=== PATIENT | female | born 1960 | race Caucasian/White ===

== ENCOUNTER 2020-01-11 23:19 | Emergency (ER) | payer OTHER, SELFPAY ==
--- NOTE | ~2020-01-11 | CT_ITS ---
EXAMINATION: CT brain wo con DATE: 01/11/2020 23:58 INDICATION: Headache since this morning. TECHNIQUE: Computed tomography (CT) of the head was performed without intravenous contrast. The mA wa s adjusted according to patient size. Iterative reconstruction technique was employed. Exam dose: 68 1.00 mGy-cm total exam DLP. COMPARISON: None FINDINGS: No intracranial mass lesion or hemorrhage or cerebrovascular accident is evident. There is no midline shift or mass effect. Normal ventricular size. Normal villa-white matter differentiation. N o subdural or epidural hematoma. There are bilateral carotid siphon internal carotid artery calcifica tions as well as left vertebral artery calcification. No orbital mass lesion. Included paranasal sinuses and the mastoid air cells are normally developed and aerated. No fracture or bone destruction of the cranial vault. IMPRESSION: Cerebral atherosclerosis No acute finding Reviewed, dictated and finalized at [facility]. Reviewed, dictated and finalized at location [facility]. NESS SPECIALIST
--- NOTE | ~2020-01-11 | XR_ITS ---
EXAMINATION: XR chest 2V DATE: 01/11/2020 23:59 INDICATION: Chest pain TECHNIQUE: PA and lateral views of the chest are obtained. COMPARISON: 08/05/2007 FINDINGS: The lungs are free of acute opacities. There is no pleural effusion or pneumothorax. The ca rdiomediastinal silhouette is normal. There is mild thoracic spondylosis. IMPRESSION: 1. No acute cardiopulmonary abnormality. Reviewed, dictated and finalized at location [facility]. 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
--- NOTE | 2020-01-11 23:21 | ECG_ITS ---
Measurements Intervals [place] Rate: 73 P: 48 DC: 150 QRS: 39 QRSD: 89 T: 37 QT: 375 QTc: 413 Interpretive Statements SINUS RHYTHM NORMAL ECG Electronically Signed On 01-12-2020 17:23:31 CINDER WORKER by Broderick Schwab D.O.
[2020-01-11 23:25] VITALS: BP 179/101; PULSE 78; RESP 20; TEMP 36.6; O2SAT 98
[2020-01-11 23:30] VITALS: PULSE 73
--- NOTE | 2020-01-11 23:30 | ED.CHESTPAIN ---
HPI - Chest Pain General Chief Complaint: Chest Pain Stated Complaint: Chest pain Time Seen by Provider: 01/11/20 23:30 Source: patient Mode of arrival: ambulatory Limitations: no limitations History of Present Illness HPI narrative: 60-year-old woman with a history of WPW status post ablation brought in today by her sister for chest pain and headache which has been present since yesterday. Chest pain has been intermittent, left-sided and radiates to her back. She states that there are no alleviating or exacerbating activities. She denies previous similar episodes. Patient states that she has had a diffuse headache that is like hammering her head and 12/07. She denies shortness of breath, fever, chest pain, nausea, vomiting, visual changes, cough, sore throat and cold symptoms. MD complaint: chest pain Related Data Home Medications Medication Instructions Recorded Confirmed meclizine [Antivert] 25 mg PO BID PRN 01/11/20 01/11/20 Allergies Allergy/AdvReac Type Severity Reaction Status Date / Time No Known Allergies Allergy Verified 01/11/20 23:45 Review of Systems Constitutional: Constitutional: Denies body ache(s) and Denies chills Comments: No fever Eyes: Eyes: Reports blurry vision, Denies change in vision and Denies photophobia ENT: Denies mouth lesions, Denies nasal congestion and Denies sore throat Cardiovascular: Cardiovascular: Reports chest pain, Denies rapid heart rate, Denies leg edema, Denies dyspnea and Denies orthopnea Respiratory: Respiratory: Denies cough, Denies hemoptysis, Denies dyspnea and Denies wheezing Gastrointestinal: Gastrointestinal: Denies abdominal pain, Denies diarrhea, Denies nausea and Denies vomiting Musculoskeletal: Musculoskeletal: Denies arthralgias and Denies joint swelling Integumentary/Breasts: Skin/Breast: Denies change in pigmentation, Denies erythema and Denies rash Neurologic: Denies vertigo, Denies dizziness, Denies syncope, Reports headache(s), Denies focal weakness, Denies loss of vision and Denies weakness Hematologic/Lymphatic: Hematologic/Lymphatic: Denies easy bleeding and Denies easy bruising Allergic/Immunologic: Allergic/Immunologic: Denies urticaria, Denies lip swelling and Denies throat swelling PMFSH Past Medical History Medical History Zgztg-Egaiqiwnh-Hqlix syndrome Surgical History Surgical History History of carpal tunnel surgery History of radiofrequency ablation procedure for cardiac arrhythmia History of tubal ligation Ulnar nerve entrapment Social History Social History Smoking status: Current every day smoker Alcohol intake: current Substance use: never Living arrangements: alone Exam Const: General: cooperative, alert, awake, Physically active, acute distress moderate and tired appearing Nutritional Appearance: overweight Orientation/consciousness: patient oriented x3 Limitations: no limitations HENMT: Head: normal to inspection, normocephalic and atraumatic Ears: TM's normal bilaterally and EAC's normal General nose exam: Normal external nose present Mouth: Yes Normal oral and palatal mucosa present Throat: posterior oropharynx normal Eyes: Conjunctivae: conjunctivae normal Sclera: sclerae normal Pupils: Equal, round and reactive pupils present EOM: EOMs intact bilaterally Neck: Neck: normal visual inspection and full ROM Resp: Effort & Inspection: normal respiratory effort and not labored Auscultation: clear to auscultation bilaterally, no rales, no rhonchi, no wheezes and diminished lung sounds diffuse Cardio: Rate: regular rate Rhythm: regular rhythm Heart sounds: no murmurs Peripheral pulses: Peripheral pulses 2+ throughout GI: GI Palp: No abdominal tenderness and Yes Soft to palpation Auscultation: normal bowel sounds Skin: General skin
[2020-01-12 00:03] LABS: Basophils Absolute Auto 0.06 K/mm3 (0.00-0.10); Basophils Percent Auto 0.7 % (0.0-1.0); Eosinophils Absolute Auto 0.13 K/mm3 (0.02-0.50); Eosinophils Percent Auto 1.6 % (1.0-6.0); Hematocrit 47.7 % (35.0-49.0); Hemoglobin 15.8 g/dL (12.0-15.0); Immature Granulocyte Absolute 0.02 K/mm3 (0.00-0.00); Immature Granulocyte Percent A 0.2 % (0.0-0.0); Lymphocytes Absolute Auto 2.81 K/mm3 (1.10-4.50); Lymphocytes Percent Auto 33.6 % (18.0-42.0); Mean Corpuscular HGB Conc 33.1 g/dL (32.0-36.0); Mean Corpuscular Hemoglobin 30.2 pg (27.0-31.0); Mean Corpuscular Volume 91.2 fL (78.0-102.0); Mean Platelet Volume 8.8 fl (9.2-11.8); Monocytes Percent Auto 4.8 % (2.0-11.0); Neutrophils Percent Auto 59.1 % (50.0-70.0); Platelet Count Result 210 K/mm3 (150-420); Red Blood Count 5.23 M/mm3 (4.20-5.40); Red Cell Distribution Width 13.7 % (11.6-14.4); White Blood Count 8.4 K/mm3 (4.8-10.8)
[2020-01-12] MEDS: MORPHINE SULFATE (*CRX) 4 MG/ML INJ IV PUSH (00:12)
[2020-01-12] MEDS: ONDANSETRON INJ 4 MG/2 ML VIAL IV PUSH (00:12)
[2020-01-12 00:19] LABS: Partial Thromboplastin Time 27.3 SEC (22.3-31.6); Prothrombin Time 10.8 Seconds (9.64-11.0)
[2020-01-12 00:20] LABS: Alanine Aminotransferase 20 U/L (14-59); Albumin Level 4.1 g/dL (3.4-5.0); Alkaline Phosphatase 80 U/L (46-116); Anion Gap 11 mmol/L (8-16); Aspartate Amino Transferase 12 U/L (15-37); Bilirubin,Total 0.2 mg/dL (0.00-1.00); Blood Urea Nitrogen 16 mg/dL (7-18); Calcium 9.1 mg/dL (8.5-10.1); Carbon Dioxide 24 mmol/L (21-32); Chloride 107 mmol/L (98-108); Estimated CRCL calculation 59 ml/min; Estimated Glomerular Filt Rate 57; Glucose 104 mg/dL (70-99); Lipase 158 U/L (73-393); Osmolality Calculated 295 mOsm/kg (285-295); Potassium 3.8 mmol/L (3.5-5.1); Sodium 142 mmol/L (136-145); Total Protein 6.7 g/dL (6.4-8.2)
[2020-01-12 00:22] LABS: BNP 8.2 pg/mL (0-100); Troponin I < 0.02 ng/mL (0.00-0.056)
[2020-01-12 00:32] VITALS: BP 149/81; PULSE 68; RESP 20; O2SAT 97
[2020-01-12 00:50] LABS: Appearance Urine Clear (Clear); Bilirubin Urine Negative (Negative); Color Urine Yellow (Yellow); Glucose Urine UA Negative (Negative); Ketones Urine Negative (Negative); Leukocyte Esterase Ur 1+ LEU/UL (Negative); Nitrate Urine Negative (Negative); Protein Urine Negative (Negative); Specific Grav Ur 1.015 (1.010-1.020); Urobilinogen Urine 0.2 mg/dL (0.2-1.0)
[2020-01-12 00:56] LABS: Add Urine Microscopic? YES; Bacteria Urine None seen /hpf; Blood Urine Trace-Intact (Negative); RBC Urine 0-2 /hpf (0-2); Squamous Epithelial Cell Urine None seen /hpf (Few)
[2020-01-12] MEDS: PROCHLORPERAZINE EDISYLATE 10 MG/2 ML VIAL IV PUSH (01:00)
[2020-01-12 01:36] VITALS: BP 149/86; PULSE 73; RESP 20; TEMP 36.6; O2SAT 98
== END 2020-01-12 01:44 | disposition home or self-care (01) ==
PROVIDERS: Emergency Provider Emergency Medicine
DX: R51.9 Headache, unspecified (principal); R07.89 Other chest pain
CPT/HCPCS: 36415; 70450; 71046; 80053; 81001; 83690; 83880; 84484; 85025; 85380; 85610; 85730; 87086; 93005; 96374; 96375; 99284; J0780; J2270; J2405

== ENCOUNTER 2021-08-31 22:45 | Emergency (ER) | payer OTHER, SELFPAY ==
--- NOTE | ~2021-08-31 | XR_ITS ---
EXAMINATION: XR chest 1V portable DATE: 08/31/2021 23:38 INDICATION: Shortness of breath. 3 days of body discomfort. COVID exposure. TECHNIQUE: frontal view of the chest was obtained. COMPARISON: Chest radiograph dated 01/11/2020 FINDINGS: Mild bibasilar opacities. No pleural effusion or pneumothorax. The cardiomediastinal silhouette is no rmal. Visualized bones and soft tissues are unremarkable. IMPRESSION: 1. Mild bibasilar opacities which could represent atelectasis or pneumonia. Reviewed, dictated and finalized at location [facility].
[2021-08-31 23:15] VITALS: BP 166/87; PULSE 101; RESP 18; TEMP 38.4; O2SAT 94
[2021-08-31 23:24] VITALS: O2SAT 94
--- NOTE | 2021-08-31 23:40 | ED.SOB ---
HPI - SOB/Dyspnea General Chief Complaint: Shortness of Breath/Dyspnea Stated Complaint: fever,bad headache,body aches sister has covid Source: patient Mode of arrival: ambulatory Limitations: no limitations History of Present Illness HPI Narrative: this is a 61-year-old female that presents with a shortness breath with some nonproductive cough a fever of 101 is not taking anything at home states that she has had exposure to COVID. There is no chest pain does have O2 sats of 94% on room air appears comfortable with no nausea vomiting no abdominal pain no diarrhea constipation. MD elicited complaint: shortness of breath, cough and pain with inspiration Onset (ago): day(s) Timing: constant Severity: mild Exacerbating factors: nothing Relieving factors: nothing Associated symptoms: denies other symptoms Treatment prior to arrival: none Related Data Home Medications Medication Instructions Recorded Confirmed amitriptyline 25 mg tablet 1 tablet PO DAILY 08/31/21 08/31/21 aspirin 81 mg chewable tablet 1 tablet PO DAILY 08/31/21 08/31/21 atorvastatin 40 mg tablet 1 tablet PO DAILY 08/31/21 08/31/21 lisinopril 30 mg tablet 1 tablet PO DAILY 08/31/21 08/31/21 lorazepam 1 mg tablet 1 tablet PO DAILY PRN Anxiety 08/31/21 08/31/21 Allergies Allergy/AdvReac Type Severity Reaction Status Date / Time No Known Allergies Allergy Verified 08/31/21 23:10 Review of Systems Review of Systems: All systems reviewed & are unremarkable except as noted in HPI and below PMFSH Past Medical History Medical History Atwnv-Ztwifmlmk-Qdzwl syndrome Surgical History Surgical History History of carpal tunnel surgery History of radiofrequency ablation procedure for cardiac arrhythmia History of tubal ligation Ulnar nerve entrapment Social History Social History Smoking status: Current every day smoker Alcohol intake: current Substance use: never Exam Const: General: healthy appearing and no acute distress HENMT: Head: normal to inspection General nose exam: Normal external nose present Face and sinus: normal facial exam Eyes: Conjunctivae: conjunctivae normal Pupils: Equal, round and reactive pupils present EOM: EOMs intact bilaterally Neck: Neck: normal visual inspection and no meningeal signs Chest: Chest palpation & inspection: normal inspection of the chest Resp: Effort & Inspection: normal respiratory effort Auscultation: clear to auscultation bilaterally Cardio: Rate: regular rate Rhythm: regular rhythm GI: GI Palp: Yes Soft to palpation Auscultation: normal bowel sounds Skin: General skin exam: normal color Rashes: no rashes Wounds: no wounds Neuro: General: patient oriented x3 Extrem: General: normal to inspection Psych: Mental Status: mental status grossly normal Affect: normal affect Course Course Emergency Course: X-ray reviewed and reviewed with patient blood work reviewed as well. Vital Signs Vital signs: Vital Signs Temperature 38.4 C H 08/31/21 23:15 Pulse Rate 101 H 08/31/21 23:15 Respiratory Rate 18 08/31/21 23:15 Blood Pressure 166/87 H 08/31/21 23:15 Pulse Oximetry 94 08/31/21 23:15 Oxygen Delivery Room Air 08/31/21 23:15 Temperature 38.4 C H 08/31/21 23:15 Pulse Rate 101 H 08/31/21 23:15 Respiratory Rate 18 08/31/21 23:15 Blood Pressure 166/87 H 08/31/21 23:15 Pulse Oximetry 94 08/31/21 23:24 Oxygen Delivery Room Air 08/31/21 23:24 Critical Care Time Critical Care Time Critical Care Time: No Discharge Plan Discharge Clinical Impression: COVID-19 Patient Disposition: Home, Self-Care Condition: Stable Instructions: Antibiotic Form, COVID-19 (Coronavirus Disease 2019) (ED) Additional Instructions: take medicine as prescribed and follow-up primary car
[2021-08-31 23:43] LABS: Basophils Absolute Auto 0.04 K/mm3 (0.00-0.10); Basophils Percent Auto 0.5 % (0.0-1.0); Eosinophils Absolute Auto 0.04 K/mm3 (0.02-0.50); Eosinophils Percent Auto 0.5 % (1.0-6.0); Hematocrit 46.5 % (35.0-49.0); Hemoglobin 15.3 g/dL (12.0-15.0); Immature Granulocyte Absolute 0.03 K/mm3 (0.00-0.00); Immature Granulocyte Percent A 0.4 % (0.0-0.0); Lymphocytes Absolute Auto 0.77 K/mm3 (1.10-4.50); Lymphocytes Percent Auto 10.3 % (18.0-42.0); Mean Corpuscular HGB Conc 32.9 g/dL (32.0-36.0); Mean Corpuscular Hemoglobin 30.1 pg (27.0-31.0); Mean Corpuscular Volume 91.4 fL (78.0-102.0); Mean Platelet Volume 8.7 fl (9.2-11.8); Monocytes Absolute Auto 0.45 K/mm3 (0.10-0.90); Neutrophils Absolute Auto 6.1 K/mm3 (1.7-7.2); Neutrophils Percent Auto 82.3 % (50.0-70.0); Platelet Count Result 160 K/mm3 (150-420); Red Blood Count 5.09 M/mm3 (4.20-5.40); Red Cell Distribution Width 13.2 % (11.6-14.4); White Blood Count 7.5 K/mm3 (4.8-10.8)
[2021-08-31 23:58] LABS: Alanine Aminotransferase 23 U/L (14-59); Alkaline Phosphatase 94 U/L (46-116); Anion Gap 12 mmol/L (8-16); Aspartate Amino Transferase 10 U/L (15-37); Bilirubin,Total 0.3 mg/dL (0.00-1.00); Blood Urea Nitrogen 19 mg/dL (7-18); Calcium 9.4 mg/dL (8.5-10.1); Carbon Dioxide 24 mmol/L (21-32); Chloride 103 mmol/L (98-108); Estimated CRCL calculation 63 ml/min; Estimated Glomerular Filt Rate 56; Glucose 96 mg/dL (70-99); Osmolality Calculated 290 mOsm/kg (285-295); Potassium 3.9 mmol/L (3.5-5.1); Sodium 139 mmol/L (136-145); Total Protein 6.8 g/dL (6.4-8.2)
[2021-09-01 00:18] LABS: SARS-CoV-2 RNA PCR Positive (Negative)
[2021-09-01 00:48] VITALS: BP 153/80; PULSE 102; RESP 17; TEMP 37.7; O2SAT 95
== END 2021-09-01 00:50 | disposition home or self-care (01) ==
PROVIDERS: Emergency Provider Emergency Medicine; PCP Family Medicine
DX: U07.1 COVID-19 (principal)
CPT/HCPCS: 36415; 71045; 80053; 85025; 99283; C9803; U0003; U0005

== ENCOUNTER 2021-09-14 14:03 | Outpatient (CLI) | payer OTHER, SELFPAY ==
--- NOTE | 2021-09-14 14:53 | ECHO_ITS ---
Patient Info Name: Hansa Galan Age: 61 years : 1960 Gender: Female Ht: 66 in Wt: 200 lbs BSA: 2.09 m2 HR: 68 bpm BP: 141 / 90 mmHg Technical Quality: Good Exam Date: 09/14/2021 2:03 PM Exam Location: [facility] Patient Status: Outpatient Admit Date: 09/14/2021 Staff Ordering Physician: Dean, Ramez GONZALES Pathology Laboratory Aides Teacher: Garret Maya, MANAV, RT Attending Provider: Dean, Ramez GONZALES Exam Type: CA echo doppler color flow Study Info Indications I10 - Essential (primary) hypertension Complete two-dimensional, color flow and Doppler transthoracic echocardiogram is performed. Strain analysis performed. Summary 1. Complete two-dimensional, color flow and Doppler transthoracic echocardiogram is performed. 2. Left ventricular chamber dimension is normal. 3. Left ventricular systolic function is normal, estimated at 60-65%. 4. The left ventricular diastolic function is grade I diastolic dysfunction. 5. E/e' 5 is not elevated. 6. Global longitudinal strain is normal at -22.6%. 7. There is trace mitral valve regurgitation. 8. No pulmonary hypertension, estimated pulmonary arterial systolic pressure is 21 mmHg. Left Ventricle E/e' 5 is not elevated. Global longitudinal strain is normal at -22.6%. Left ventricular chamber dimension is normal. Left ventricular systolic function is normal, estimated at 60-65%. The left ventricular diastolic function is grade I diastolic dysfunction. Right Ventricle Right ventricular systolic function is normal and with normal TAPSE 2.0 cm. Right ventricular chamber dimension is normal. Left Atria Left atrial chamber dimension is normal. Right Atria Right atrial chamber dimension is normal. Aortic Valve The aortic valve is trileaflet. There is no aortic valve stenosis. There is no aortic valve regurgitation. Pulmonic Valve There is no pulmonic regurgitation. Mitral Valve There is no mitral valve stenosis. There is trace mitral valve regurgitation. Tricuspid Valve There is no tricuspid valve regurgitation. No pulmonary hypertension, estimated pulmonary arterial systolic pressure is 21 mmHg. Pericardium/Pleural There is no pericardial effusion. Inferior Vena Cava Normal inferior vena cava with >50% collapse upon inspiration consistent with normal right atrial pressure, 5 mmHg. Aorta The aortic root size at the sinus of Valsalva is normal. Left Ventricular Outflow Tract Name Value Normal LVOT 2D LVOT Diameter 2.0 cm LVOT Doppler LVOT Peak Velocity 84 cm/s LVOT Peak Gradient 3 mmHg LVOT Mean Gradient 1 mmHg LVOT VTI 18 cm LVOT VTI/AV VTI Ratio 0.8 LVOT Stroke Volume 56 ml Mitral Valve Name Value Normal MV Doppler MV De
== END 2021-09-14 14:04 | disposition home or self-care (01) ==
LOC: CHSIMG 14:05
PROVIDERS: PCP Family Medicine; Visit Provider Family Medicine
DX: I10 Essential (primary) hypertension (principal)
CPT/HCPCS: 93306

== ENCOUNTER 2021-09-25 08:16 | Outpatient (CLI) | payer OTHER, SELFPAY ==
--- NOTE | ~2021-09-25 | US_ITS ---
US arterial ankle brachial ind INDICATION: Left leg pain TECHNIQUE: Segmental pressures and plethysmographic and Doppler waveforms of the brachial and lower e xtremity arteries were obtained. COMPARISON: None. FINDINGS: Right and left brachial artery pressures of 122 mm Hg and 129 mm Hg, respectively, are concordant (no rmal difference <= 30 mmHg). The right ankle-brachial index (JHON) is 1.08 (normal >= 0.9-1.0). The right great toe-brachial index (TBI) is 0.91 (normal >= 0.60). The left JHON is 0.87. The left TBI is 0.83. IMPRESSION: 1. Mildly decreased left JHON consistent with peripheral arterial disease. 2: Normal right ankle and toe brachial indices. Reviewed, dictated and finalized at location A.
== END 2021-09-25 08:17 | disposition home or self-care (01) ==
LOC: CHSIMG 08:17
PROVIDERS: PCP Family Medicine; Visit Provider Registered Nurse
DX: M79.89 Other specified soft tissue disorders (principal)
CPT/HCPCS: 93922

== ENCOUNTER 2021-10-06 15:57 | Outpatient (CLI) | payer OTHER, SELFPAY ==
--- NOTE | ~2021-10-06 | XR_ITS ---
EXAM: XR lumbar spine 2-3V DATE: 10/06/2021 16:26 HISTORY: LT sided low back pain with numbness in LT leg . COMPARISON: None available. FINDINGS: 5 nonrib-bearing lumbar-type vertebral bodies. Pedicles intact. Normal vertebral body alig nment. Vertebral body heights preserved. Multilevel mild disc space narrowing and marginal osteophyto sis, most pronounced at L5-S1. Facet sclerosis at L4-5 and L5-S1. Interspinous narrowing at L3-4 and L4-5. No fracture or dislocation. Punctate calcification projecting over the left renal shadow. IMPRESSION: Multiple level mild degenerative disc disease. Lower lumbar facet arthropathy and intersp inous narrowing. Possible left nephrolithiasis. Reviewed, dictated and finalized at location [facility]. IMPRESSION: Multiple level mild degenerative disc disease. Lower lumbar facet a rthropathy and interspinous narrowing. Possible left nephrolithiasis.
== END 2021-10-06 15:58 | disposition home or self-care (01) ==
LOC: CHSIMG 15:59
PROVIDERS: PCP Family Medicine; Visit Provider Registered Nurse
DX: M54.32 Sciatica, left side (principal)
CPT/HCPCS: 72100

== ENCOUNTER 2021-10-16 15:00 | Outpatient (RCR) | payer OTHER, SELFPAY ==
--- NOTE | 2021-10-14 16:32 | PTOPEVAL ---
Thank you for referring Hansa Galan to [facility].? The patient is scheduled to be seen for therapy? __2__x/week for 12 visits. Please review, sign, date and return this plan of care DEBORAH. I agree with and certify that the following plan of care is medically necessary. Referring Physician Date Admitting Provider: Attending Provider: Ramez Moran, Referring Provider: *PT Outpatient Evaluation Start: 10/12/21 14:54 Freq: Status: Active Protocol: Document 10/12/21 14:54 GRETCHEN (Rec: 10/12/21 15:23 GRETCHEN [id number]) Therapy Assessment Status Assessment Status Assessment Status Evaluation Outpatient Past Medical History Neurological History Hx Migraine Yes Cardiovascular History Hx Hypercholesterolemia Yes Hx Hypertension Yes Hx Other Cardiac Disorders Yes: wpw syndrome Gastrointestinal History Hx Gastrointestinal Disorders No Significant History Genitourinary History Hx Genitourinary Disorders No Significant History Musculoskeletal History Hx Musculoskeletal Disorders No Significant History Hematological History Hx Hematological Disorders No Significant History Endocrine History Hx Endocrine Disorders No Significant History HEENT History Hx HEENT Disorders No Significant History Integumentary History Hx Skin Disorders No Significant History Reproductive History Hx Post Menopausal Yes Hx Tubal Ligation Yes Psychosocial History Hx Anxiety Yes Pain History History of Any Previous or Ongoing No Significant History Instance of Pain Anesthesia History Hx Anesthesia Reactions No Significant History Other History Hx Other Surgeries Yes: C.T., ulnar nerve Evaluation Information Problem Diagnosis left sciatic pain Onset 10/06/21 Subjective Information Pt. reports that she has had Query Text:As Reported By Patient/ back and left sided pain for Family awhile. She reports that the pain radiates down both legs but is worse on the left. She statse that she cannot stand for more than 20 minutes without pain increase. Pt. reports that she uses naproxen for pain, which can help with sleep. She reports that she has not had an MRI. She did have xray which revealed DDD. She reports that her goal for therapy is to decrease her low back pain. Pain As
--- NOTE | 2021-11-17 15:43 | PTOPPROG ---
Assessment and note entered by Tory Wills, PT Evaluation Information Assessment Status Progress Subjective Information Patient reports that her pain is improving overall . She is able to walk 3-4 blocks now compared to 10 feet previously. She feels it is 40-50% better overall since initiating PT. She is however taking an anti-inflammatory medication daily. She reports she will follow up with her MD next week after her 12th PT visit. Assessment PT Clinical Summary Hansa Galan has completed 10 physical therapy visits for left sciatic pain. She is reporting a 40-50% overall improvement noting improved tolerance to standing and walking. 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 She also continues to have moderate left lower extremity and low back pain. She objectively demonstrates improved lumbar flexion and extension ROM. She continues to have tenderness on the left more than right gluteals, decreased and painful lumbar lateral flexion bilaterally, decreased core strength, decreased left knee and hip strength, and decreased functional abilities. She will continue to benefit from skilled PT to further address these limitations. Plan of Care Interventions Electrical Stimulation,Hot Pack/Cold Pack, Therapeutic Exercise PT Services Indicated Yes Treatment Frequency and Continue x 2 more visits. Duration These treatments will address the objective and functional deficits as defined above. The patient will be advanced safely and appropriately in order for the patient to progress towards his/her prior level of function. Additional exercises will be introduced and as well as a comprehensive home exercise program upon discharge, if needed, ?to ensure carryover of functional gains achieved in the clinic. This treatment plan has been reviewed and agreement upon by the patient.
--- NOTE | 2021-11-17 15:46 | PTOPPROGNS ---
Assessment and note entered by Tory Wills, PT Evaluation Information Assessment Status Progress Diagnosis L Sciatic Pain Onset 10/06/21 Subjective Information Patient reports that her pain is improving overall . She is able to walk 3-4 blocks now compared to 10 feet previously. She feels it is 40-50% better overall since initiating PT. She is however taking an anti-inflammatory medication daily. She states she is still limited with standing too but she is not working so she has been unable to test if she can stand more than 20 minutes at a time. She reports she will follow up with her MD next week after her 12th PT visit. Assessment PT Clinical Summary Hansa Galan has completed 10 physical therapy visits for left sciatic pain. She is reporting a 40-50% overall improvement noting improved tolerance to standing and walking. 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 She also continues to have moderate left lower extremity and low back pain. She objectively demonstrates improved lumbar flexion and extension ROM. She continues to have tenderness on the left more than right gluteals, decreased and painful lumbar lateral flexion bilaterally, decreased core strength, decreased left knee and hip strength, and decreased functional abilities. She will continue to benefit from skilled PT to further address these limitations. Plan of Care Interventions Electrical Stimulation,Hot Pack/Cold Pack, Therapeutic Exercise PT Services Indicated Yes Treatment Frequency and Continue x 2 more visits. Duration These treatments will address the objective and functional deficits as defined above. The patient will be advanced safely and appropriately in order for the patient to progress towards his/her prior level of function. Additional exercises will be introduced and as well as a comprehensive home exercise program upon discharge, if needed, ?to ensure carryover of functional gains achieved in the clinic. This treatment plan has been reviewed and agreement upon by the patient.
== END 2021-11-23 17:04 | disposition home or self-care (01) ==
LOC: CHSPT 15:00
PROVIDERS: PCP Family Medicine; Visit Provider Family Medicine
DX: M54.32 Sciatica, left side (principal)
CPT/HCPCS: 97014; 97110; 97161; G0283

== ENCOUNTER 2022-03-30 12:48 | Emergency (ER) | payer OTHER, SELFPAY ==
[2022-03-30] VITALS (9 sets, daily range): BP systolic 111–139; BP diastolic 49–94; PULSE 81–95; RESP 16; TEMP 36.9; O2SAT 91–98
--- NOTE | 2022-03-30 12:53 | ED.NAVMDI ---
HPI - Nausea/Vomiting/Diarrhea General Chief complaint: Nausea/Vomiting/Diarrhea Stated complaint: diarhhea, vomiting, chemotherapy pt Time Seen by Provider: 03/30/22 12:53 Source: patient and RN notes reviewed Mode of arrival: ambulatory Limitations: no limitations History of Present Illness MD elicited complaint: nausea, vomiting and diarrhea Pertinent past history: other ( chemotherapy for breast cancer) Onset (ago): day(s) (7) Description of vomiting: food contents Description of diarrhea: watery Associated nausea: Yes Associated abdominal pain: No Location of pain: none Exacerbating factors: eating and bowel movement Relieving factors: none Associated symptoms: denies other symptoms Related Data Home Medications Medication Instructions Recorded Confirmed amitriptyline 25 mg tablet 1 tablet PO DAILY 08/31/21 03/30/22 aspirin 81 mg chewable tablet 1 tablet PO DAILY 08/31/21 03/30/22 atorvastatin 40 mg tablet 1 tablet PO DAILY 08/31/21 03/30/22 lisinopril 30 mg tablet 1 tablet PO DAILY 08/31/21 03/30/22 amlodipine 5 mg tablet 5 mg PO DAILY 03/30/22 03/30/22 olanzapine 5 mg tablet 5 mg PO DAILY 03/30/22 03/30/22 ondansetron HCl 8 mg tablet 8 mg PO DAILY 03/30/22 03/30/22 Allergies Allergy/AdvReac Type Severity Reaction Status Date / Time No Known Allergies Allergy Verified 03/30/22 13:03 Review of Systems Review of Systems: All systems reviewed & are unremarkable except as noted in HPI and below Constitutional: Constitutional: Denies chills and Denies fever(s) PMFSH Past Medical History Medical History Breast cancer Acmlb-Yxnhcueso-Ppbvi syndrome Surgical History Surgical History History of carpal tunnel surgery History of radiofrequency ablation procedure for cardiac arrhythmia History of tubal ligation Ulnar nerve entrapment Social History Social History Smoking status: Current every day smoker Alcohol intake: current Substance use: never Living arrangements: alone Exam Const: General: healthy appearing, no acute distress and alert Nutritional Appearance: well nourished and obese morbidly obese Orientation/consciousness: patient oriented x3 Limitations: no limitations HENMT: Head: normal to inspection Ears: external ears normal Eyes: Conjunctivae: conjunctivae normal Cornea: corneas normal Pupils: Equal, round and reactive pupils present EOM: EOMs intact bilaterally Neck: Neck: normal visual inspection Resp: Effort & Inspection: normal respiratory effort Auscultation: clear to auscultation bilaterally Cardio: Rate: regular rate Rhythm: regular rhythm ( occasional pause) GI: GI Palp: Yes Soft to palpation and No Tenderness to palpation present (GI) Auscultation: bowels sounds not normal Back/Spine/Pelvis: Cervical Spine: cervical ROM normal Thoracic/Lumbar Spine: thoraco-lumbar ROM normal Skin: General skin exam: normal color Rashes: no rashes Neuro: General: patient oriented x3, moves all extremities, no focal motor deficits and CN's II-XI intact bilaterally Speech: normal speech Gait exam (Neuro): Normal gait present Extrem: General: normal to inspection and no clubbing, cyanosis or edema Psych: Mental Status: mental status grossly normal Affect: normal affect Attitude: cooperative Course Vital Signs Vital signs: Vital Signs Temperature 36.9 C 03/30/22 13:00 Pulse Rate 95 03/30/22 13:00 Respiratory Rate 16 03/30/22 13:00 Blood Pressure 139/94 H 03/30/22 13:00 Pulse Oximetry 97 03/30/22 13:00 Oxygen Delivery Room Air 03/30/22 13:00 Temperature 36.9 C 03/30/22 14:35 Pulse Rate 81 03/30/22 14:35 Respiratory Rate 16 03/30/22 14:35 Blood Pressure 136/74 03/30/22 14:35 Pulse Oximetry 97 03/30/22 14:35 Oxygen Delivery Room Air 03/30/22 14:35 MDM - Nausea/Vom
[2022-03-30] MEDS: SODIUM CHLORIDE 0.9% IV 1,000 ML 999 ML IV CONT (13:17)
[2022-03-30 13:33] LABS: Hematocrit 43.5 % (35.0-49.0); Hemoglobin 14.6 g/dL (12.0-15.0); Mean Corpuscular HGB Conc 33.6 g/dL (32.0-36.0); Mean Corpuscular Hemoglobin 30.4 pg (27.0-31.0); Mean Corpuscular Volume 90.6 fL (78.0-102.0); Mean Platelet Volume 9.3 fl (9.2-11.8); Platelet Count Result 160 K/mm3 (150-420); Red Cell Distribution Width 12.9 % (11.6-14.4); White Blood Count 14.5 K/mm3 (4.8-10.8)
[2022-03-30 13:46] LABS: Alanine Aminotransferase 22 U/L (14-59); Albumin Level 3.6 g/dL (3.4-5.0); Alkaline Phosphatase 119 U/L (46-116); Anion Gap 9 mmol/L (8-16); Aspartate Amino Transferase 15 U/L (15-37); Band Neutrophils Percent 15 % (0-6); Bilirubin,Total 0.2 mg/dL (0.00-1.00); Blood Urea Nitrogen 9 mg/dL (7-18); CRP 0.5 mg/dL (0.0-0.9); Calcium 9.3 mg/dL (8.5-10.1); Carbon Dioxide 28 mmol/L (21-32); Chloride 102 mmol/L (98-108); Estimated Glomerular Filt Rate > 60; Glucose 110 mg/dL (70-99); Lipase 16 U/L (16-77); Lymphocytes Absolute Manual 3.19 K/mm3 (1.1-4.5); Lymphocytes Percent Manual 22 % (18-44); Metamyelocytes Percent 1 %; Monocytes Absolute Manual 1.59 K/mm3 (0.1-0.90); Monocytes Percent Manual 11 % (3-9); Myelocytes Percent 1 %; Neutrophils Absolute Manual 9.42 K/mm3 (1.7-7.2); Neutrophils Percent Manual 50 % (46-73); Osmolality Calculated 287 mOsm/kg (285-295); Platelet Estimate Adequate (Adequate); Potassium 3.6 mmol/L (3.5-5.1); Sodium 139 mmol/L (136-145); Total Cells Counted 100; Total Protein 6.3 g/dL (6.4-8.2)
[2022-03-30 13:49] LABS: Lactic Acid Reflex 1.6 mmol/L (0.4-2.0)
[2022-03-30 14:17] LABS: Add Urine Microscopic? YES; Appearance Urine Clear (Clear); Bilirubin Urine Negative (Negative); Blood Urine Negative (Negative); Color Urine Light Yellow (Yellow); Glucose Urine UA Negative (Negative); Ketones Urine Negative (Negative); Leukocyte Esterase Ur 1+ LEU/UL (Negative); Nitrate Urine Negative (Negative); Protein Urine Negative (Negative); Urobilinogen Urine 0.2 mg/dL (0.2-1.0)
[2022-03-30 14:20] LABS: Bacteria Urine 1+ /hpf; RBC Urine None seen /hpf (0-2); Renal Epithelial Cells Urine Few /hpf; Squamous Epithelial Cell Urine Few /hpf (Few); WBC Urine 16-20 /hpf (0-3)
--- NOTE | 2022-04-01 12:16 | PC.NURSE ---
final urine culture report reviewed. no growth found. no change in plan of care
--- NOTE | 2022-04-05 16:54 | PC.NURSE ---
final blood culture reports x2 reviewed. no growth after 5 days. no change in plan of care
== END 2022-03-30 14:49 | disposition home or self-care (01) ==
PROVIDERS: Emergency Provider Emergency Medicine; PCP Physician Assistant
DX: N30.01 Acute cystitis with hematuria (principal); F17.200 Nicotine dependence, unspecified, uncomplicated; Z85.3 Personal history of malignant neoplasm of breast; Z79.82 Long term (current) use of aspirin
CPT/HCPCS: 36415; 80053; 81001; 83605; 83690; 85025; 86140; 87040; 87086; 96360; 99283; J7030

== ENCOUNTER 2022-04-05 01:02 | Emergency (ER) | payer OTHER, SELFPAY ==
[2022-04-05] VITALS (15 sets, daily range): BP systolic 99–149; BP diastolic 65–92; PULSE 68–96; RESP 15–20; TEMP 36.6; O2SAT 92–99
--- NOTE | ~2022-04-05 | CT_ITS ---
Clinical Indication: Shortness of breath CT Scan of the Chest with Contrast: Technique: Contiguous sections were acquired throughout the chest after intravenous administration of 100 cc of Omnipaque 350. Dose reduction technique was used on this scan by utilizing automated expos ure control and iterative reconstruction technique. The dose-length product (DLP) was 740.62 mGy-cm. Findings: There is no evidence of any significant mediastinal, hilar or axillary lymphadenopathy. There is no f illing defect in the pulmonary arterial tree to suggest pulmonary embolus. There is no evidence of ao rtic dissection or aneurysm. There is no evidence of pleural or pericardial effusion. Mild to moderate emphysema noted. 5 mm right upper lobe pulmonary nodules present (axial image 43). A dditional pleural-based 5 mm right upper lobe pulmonary nodule present more inferiorly (axial image 5 1). Additional peripheral 6 mm pulmonary nodule present (axial image 36) in the right upper lobe. 4 m m right middle lobe pulmonary nodule present (axial image 83). 7 mm right lower lobe pulmonary nodule present (axial image 90). Additional 8 mm right lower lobe pulmonary nodule present (axial image 76) . Additional 7 mm right lower lobe pulmonary nodule present (axial image 79). Several tiny left upper lobe and left lower lobe pulmonary nodules are also present peripherally. Largest of these measures 5 mm at the left lower lobe (axial image 90). Images through the upper abdomen reveal 2 cm left adrenal nodule. Impression: No evidence of pulmonary embolus, aortic dissection, or aortic aneurysm. Multiple scattered bilateral pulmonary nodules are present, largest measuring 8 mm in the right lower lobe. According to Fleischner Society criteria, for a low-risk patient, follow-up CT scan in 3-6 mon ths recommended, then consider additional 18-[address] For a high-risk patient, follow-up CT scans at 3-6 months and at 18-24 months are recommended. [id number] emphysema in the upper lobes. 2 cm relatively low-density left adrenal nodule, most likely adenoma. Reviewed, dictated and finalized at [facility] M. ISSARY REPRESENTATIVE Impression: No evidence of pulmonary embolus, aortic dissection, or aortic aneurysm. Multiple scattered bilateral pulmonary nodules are present, largest measuring 8 mm in the right lower lobe. According to Fleischner Society criteria, for a lo w-risk patient, follow-up CT scan in 3-6 months recommended, then consider hermelindo tional 18-[address] For a high-risk patient, follow-up CT scans at 3-6 month s and at 18-24 months are recommended. [id number] emphysema in the upper lobes. 2 cm relatively low-density left adrenal nodule, most likely adenoma.
--- NOTE | ~2022-04-05 | XR_ITS ---
Clinical Indication: Shortness of breath PA and lateral views of the chest: Comparison: 08/31/2021 Findings: Right-sided Mediport is in place. The lungs are clear, without evidence of focal consolidat ion or pleural effusion. Cardiomediastinal silhouette is within normal limits. Bones and soft tissue s are unremarkable. Impression: Clear lungs. Right-sided Mediport. Reviewed, dictated and finalized at location M. TELLER Impression: Clear lungs. Right-sided Mediport.
--- NOTE | 2022-04-05 01:04 | ED.CHESTPAIN ---
HPI - Chest Pain General Chief Complaint: Shortness of Breath/Dyspnea Stated Complaint: Shortness of Breath Time Seen by Provider: 04/05/22 01:04 Source: patient and RN notes reviewed Mode of arrival: ambulatory Limitations: no limitations History of Present Illness HPI narrative: Patient states that she has been coughing and having soreness in her chest for the last 3 days. She came in saying that her chest hurts. Then she talked about how she has been trying to take care of herself at home but the coughing just got so much worse. She was recently here for some diarrhea nausea vomiting and was found to have a urinary tract infection is currently on Keflex. She denies any diaphoresis. She says the diarrhea is not gotten any better and she has talked to her cancer therapy doctor. MD complaint: chest heaviness Onset (ago): day(s) (3) Prior episodes: No Onset: during rest Pain location: parasternal Pain radiation: none Severity: moderate Quality: tightness and dull Relieving factors: nothing Exacerbating factors: other ( Coughing) Associated symptoms: dyspnea and cough Treatment prior to arrival: none Risk Factors Coronary artery disease risk factors: smoking history Pulmonary embolism risk factors: malignancy Related Data Home Medications Medication Instructions Recorded Confirmed amitriptyline 25 mg tablet 1 tablet PO DAILY 08/31/21 04/05/22 aspirin 81 mg chewable tablet 1 tablet PO DAILY 08/31/21 04/05/22 atorvastatin 40 mg tablet 1 tablet PO DAILY 08/31/21 04/05/22 lisinopril 30 mg tablet 1 tablet PO DAILY 08/31/21 04/05/22 amlodipine 5 mg tablet 5 mg PO DAILY 03/30/22 04/05/22 olanzapine 5 mg tablet 5 mg PO DAILY 03/30/22 04/05/22 ondansetron HCl 8 mg tablet 8 mg PO DAILY 03/30/22 04/05/22 Allergies Allergy/AdvReac Type Severity Reaction Status Date / Time No Known Allergies Allergy Verified 03/30/22 13:03 Review of Systems Review of Systems: All systems reviewed & are unremarkable except as noted in HPI and below Constitutional: Constitutional: Denies chills and Denies fever(s) Respiratory: Respiratory: Reports as per HPI Gastrointestinal: Gastrointestinal: Denies nausea and Denies vomiting Genitourinary: Genitourinary: Denies nocturia and Denies dysuria Musculoskeletal: Musculoskeletal: Denies myalgias PMFSH Past Medical History Medical History Breast cancer Tggwf-Hriywfspf-Gpbmo syndrome Surgical History Surgical History History of carpal tunnel surgery History of radiofrequency ablation procedure for cardiac arrhythmia History of tubal ligation Ulnar nerve entrapment Social History Social History Smoking status: Current every day smoker Alcohol intake: current Substance use: never Living arrangements: alone Exam Const: General: no acute distress, alert and ill appearing chronically Nutritional Appearance: well nourished and obese morbidly obese Orientation/consciousness: patient oriented x3 Limitations: no limitations HENMT: Head: normal to inspection Ears: external ears normal Face/Nose/Sinus: Normal external nose present Face and sinus: normal facial exam Mouth: Yes moist mucous membranes Eyes: Conjunctivae: conjunctivae normal Pupils: Equal, round and reactive pupils present EOM: EOMs intact bilaterally Neck: Neck: normal visual inspection Resp: Effort & Inspection: normal respiratory effort Auscultation: rhonchi ( moderate scattered) Cardio: Rate: regular rate Rhythm: regular rhythm GI: GI Palp: Yes Soft to palpation and No Tenderness to palpation present (GI) Auscultation: normal bowel sounds Back/Spine/Pelvis: Cervical Spine: cervical ROM normal Thoracic/Lumbar Spine: thoraco-lumbar ROM normal Skin: General skin exam: normal color Rashes: no rashes Neuro: General: patient oriented x3, moves
--- NOTE | 2022-04-05 01:05 | ECG_ITS ---
Measurements Intervals [place] Rate: 74 P: 36 NC: 153 QRS: 24 QRSD: 78 T: 27 QT: 359 QTc: 400 Interpretive Statements SINUS RHYTHM BASELINE ARTIFACT LOW QRS VOLTAGE IN PRECORDIAL LEADS BORDERLINE ECG COMPARED TO ECG 01/11/2020 23:27:36 LOW-VOLTAGE QRS IS APPRECIATED IN PRECORDIAL LEADS Electronically Signed On 04-05-2022 16:09:54 OUTPATIENT PHLEBOTOMIST by Luis Vu M.D.
[2022-04-05] MEDS: ALBUTEROL SULFATE (*SP) INHALER 4 PUFF INHALATION (01:46)
[2022-04-05] MEDS: ASPIRIN 81 MG CHEWABLE TABLET 324 MG PO (01:48)
[2022-04-05 02:14] LABS: Basophils Absolute Auto 0.06 K/mm3 (0.00-0.10); Basophils Percent Auto 0.5 % (0.0-1.0); Eosinophils Absolute Auto 0.02 K/mm3 (0.02-0.50); Eosinophils Percent Auto 0.2 % (1.0-6.0); Hematocrit 42.1 % (35.0-49.0); Hemoglobin 13.7 g/dL (12.0-15.0); Immature Granulocyte Absolute 0.31 K/mm3 (0.00-0.00); Immature Granulocyte Percent A 2.5 % (0.0-0.0); Lymphocytes Absolute Auto 2.89 K/mm3 (1.10-4.50); Lymphocytes Percent Auto 23.2 % (18.0-42.0); Mean Corpuscular HGB Conc 32.5 g/dL (32.0-36.0); Mean Corpuscular Hemoglobin 30.1 pg (27.0-31.0); Mean Corpuscular Volume 92.5 fL (78.0-102.0); Mean Platelet Volume 9.7 fl (9.2-11.8); Monocytes Absolute Auto 0.47 K/mm3 (0.10-0.90); Monocytes Percent Auto 3.8 % (2.0-11.0); Neutrophils Absolute Auto 8.7 K/mm3 (1.7-7.2); Neutrophils Percent Auto 69.8 % (50.0-70.0); Platelet Count Result 142 K/mm3 (150-420); Red Blood Count 4.55 M/mm3 (4.20-5.40); Red Cell Distribution Width 13.4 % (11.6-14.4); White Blood Count 12.5 K/mm3 (4.8-10.8)
[2022-04-05 02:33] LABS: Alanine Aminotransferase 30 U/L (14-59); Anion Gap 10 mmol/L (8-16); Aspartate Amino Transferase 17 U/L (15-37); Bilirubin,Total 0.2 mg/dL (0.00-1.00); Blood Urea Nitrogen 13 mg/dL (7-18); Calcium 8.8 mg/dL (8.5-10.1); Carbon Dioxide 23 mmol/L (21-32); Chloride 107 mmol/L (98-108); Estimated CRCL calculation 83 ml/min; Estimated Glomerular Filt Rate > 60; Glucose 126 mg/dL (70-99); Osmolality Calculated 292 mOsm/kg (285-295); Potassium 3.7 mmol/L (3.5-5.1); Sodium 140 mmol/L (136-145)
[2022-04-05 02:34] LABS: Albumin Level 3.4 g/dL (3.4-5.0); Alkaline Phosphatase 127 U/L (46-116); Total Protein 6.3 g/dL (6.4-8.2); Troponin I 7.7 ng/L (0.00-60.4)
[2022-04-05 02:43] LABS: Partial Thromboplastin Time 27.1 SEC (23.90-30.70); Prothrombin Time 11.1 Seconds (9.64-11.0)
[2022-04-05 02:46] LABS: D Dimer 0.97 mg/L (0.19-0.50)
[2022-04-05 02:48] LABS: Influenza A QL RT-PCR Negative (Negative); Influenza B QL RT-PCR Negative (Negative); SARS-CoV-2 RNA PCR Negative (Negative)
[2022-04-05] MEDS: IPRATROPIUM 0.5 MG/ALBUTEROL SULFATE 2.5 MG AMPUL.NEB 3 ML INHALATION (03:53)
--- NOTE | 2022-04-05 04:40 | PC.NURSE ---
Pt resting, reports she is breathing easier and feeling better, POC discussed c pt. and she wishes to go home. Dr Denney informed on pt. wishes.
[2022-04-05] MEDS: methylPREDNISolone SOD SUCC 125 MG VIAL IV PUSH (04:44)
== END 2022-04-05 04:55 | disposition home or self-care (01) ==
PROVIDERS: Emergency Provider Emergency Medicine; PCP Physician Assistant
DX: J18.9 Pneumonia, unspecified organism (principal); J44.1 Chronic obstructive pulmonary disease with (acute) exacerbation; F17.210 Nicotine dependence, cigarettes, uncomplicated; Z79.82 Long term (current) use of aspirin; Z85.3 Personal history of malignant neoplasm of breast; Z20.822 Contact with and (suspected) exposure to COVID-19
CPT/HCPCS: 36415; 71046; 71275; 80053; 84484; 85025; 85380; 85610; 85730; 87502; 93005; 94640; 96365; 96375; 99284; A9270; J0696; J2930; Q9967; U0003; U0005

== ENCOUNTER 2022-07-14 22:55 | Emergency (ER) | payer OTHER, SELFPAY ==
--- NOTE | ~2022-07-14 | CT_ITS ---
EXAMINATION: CT brain wo con DATE: 07/14/2022 23:17 INDICATION: Left-sided numbness and weakness TECHNIQUE: Computed tomography (CT) of the head was performed without intravenous contrast. Sagittal and coronal reconstructions were performed. The mA was adjusted according to patient size. Iterative reconstruction technique was employed. The dose-length product was 681.00 mGy-cm. COMPARISON: head CT dated 01/11/20 FINDINGS: No acute intracranial hemorrhage, acute infarction or abnormal extra axial fluid collection. There is minimal scattered white matter hypoattenuation consistent with chronic small vessel ischemic disease . Ventricles are normal and symmetric. No mass/mass effect. Intracranial calcified cerebral atherosc lerosis is noted. The orbits, paranasal sinuses and mastoid air cells are normal. IMPRESSION: 1. Minimal scattered white matter hypoattenuation consistent with chronic small vessel ischemic disea se. No acute intracranial process. Reviewed, dictated and finalized at location A. IMPRESSION: 1. Minimal scattered white matter hypoattenuation consistent with chronic small vessel ischemic disease. No acute intracranial process.
--- NOTE | ~2022-07-14 | CT_ITS ---
Clinical Indication: Interscapular pain CT Scan of the Chest, Abdomen, and Pelvis with Contrast: Technique: Contiguous sections were acquired throughout the chest, abdomen, and pelvis after intraven ous administration of 100 cc of Omnipaque 350. Dose reduction technique was used on this scan by uti lizing automated exposure control and iterative reconstruction technique. The dose-length product (DL P) was 1708.17 mGy-cm. COMPARISON: 04/05/2022 Findings: Hypodense right thyroid lobe nodule is present, probably similar to prior exam. There is no evidence of any significant mediastinal, hilar or axillary lymphadenopathy. The mediastin al soft tissues and vascular structures appear normal. No aortic aneurysm or dissection. No pulmonary embolus identified. There is no evidence of pleural or pericardial effusion. Moderate emphysema present. Scattered subcentimeter pulmonary nodules are stable from prior exam. The liver, spleen, pancreas, gallbladder, right adrenal gland, and kidneys are within normal limits. Stable left adrenal nodule. No evidence of aortic aneurysm or dissection. No lymphadenopathy. No bowel obstruction or bowel wall thickening. There is no evidence to suggest acute appendicitis. Sm all fat-containing umbilical hernia noted. Urinary bladder is unremarkable. No pelvic mass evident. No ascites. Impression: No acute abnormality seen. No aortic aneurysm or dissection. Moderate emphysema. Stable scattered subcentimeter pulmonary nodules. Stable left adrenal nodule. Small fat-containing umbilical hernia. Reviewed, dictated and finalized at [facility]. Impression: No acute abnormality seen. No aortic aneurysm or dissection. Moderate emphysema. Stable scattered subcentimeter pulmonary nodules. Stable left adrenal nodule. Small fat-containing umbilical hernia.
--- NOTE | 2022-07-14 23:00 | ECG_ITS ---
Measurements Intervals [place] Rate: 79 P: 28 CA: 156 QRS: 18 QRSD: 86 T: 22 QT: 357 QTc: 411 Interpretive Statements SINUS RHYTHM BORDERLINE T WAVE ABNORMALITY- ANT/INF LEADS BORDERLINE ECG COMPARED TO ECG 04/05/2022 01:39:39 NO SIGNIFICANT CHANGES Electronically Signed On 07-15-2022 6:27:06 CDT by Broderick Schwab D.O.
[2022-07-14 23:10] VITALS: TEMP 36.8
--- NOTE | 2022-07-14 23:19 | ED.NEUROSD ---
HPI - Neuro Symptoms/Deficit General Chief Complaint: Neuro Symptoms/Deficit Stated Complaint: Left Side Numbness Source: patient Mode of arrival: ambulatory Limitations: no limitations History of Present Illness HPI Narrative: 60-year-old female, smoker with a history of COPD, WPW status post ablation, Right breast cancer with axillary lymph node involvement on carboplatin, doxy Taxol, pertuzumab, trastuzumab presents with -- numbness of left upper extremity . no other neuro deficits. -- interscapular pain which is made worse on movement of her extremities and on palpation. No chest pain. -- Headache which is generalized. No nausea/vomiting. No photophobia or phonophobia. -- last known well 10:15 p.m. Onset (ago): hour(s) ( Started 1 hour ago) Time: 21:15 Last Observed Normal: 20:15 Location: other ( left upper extremity numbness) History of same: No Severity: mild Quality: numb Relieving factors: none Exacerbating factors: none Context: sudden onset On Anticoagulants: No Associated symptoms: other ( interscapular discomfort/ pain) Treatments Prior to Arrival: none Related Data Home Medications Medication Instructions Recorded Confirmed amitriptyline 25 mg tablet 1 tablet PO DAILY 08/31/21 07/14/22 aspirin 81 mg chewable tablet 1 tablet PO DAILY 08/31/21 07/14/22 atorvastatin 40 mg tablet 1 tablet PO DAILY 08/31/21 07/14/22 lisinopril 30 mg tablet 1 tablet PO DAILY 08/31/21 07/14/22 amlodipine 5 mg tablet 5 mg PO DAILY 03/30/22 07/14/22 olanzapine 5 mg tablet 5 mg PO DAILY 03/30/22 07/14/22 ondansetron HCl 8 mg tablet 8 mg PO DAILY 03/30/22 07/14/22 Allergies Allergy/AdvReac Type Severity Reaction Status Date / Time No Known Allergies Allergy Verified 03/30/22 13:03 Review of Systems Review of Systems: All systems reviewed & are unremarkable except as noted in HPI and below Constitutional: Constitutional: Reports as per HPI and Reports no additional constitutional complaints Eyes: Eyes: Reports as per HPI and Reports no additional eye complaints ENT: Reports system reviewed and no additional complaints, except as documented and Reports as per HPI Cardiovascular: Cardiovascular: Reports as per HPI and Reports no additional cardiovascular complaints Comments: no chest pain. Complains of interscapular pain made worse by movement of arms and on palpation Respiratory: Respiratory: Reports as per HPI and Reports cough Gastrointestinal: Gastrointestinal: Reports as per HPI and Reports no additional gastrointestinal complaints Genitourinary: Genitourinary: Reports no additional female genitourinary complaints and Reports as per HPI Musculoskeletal: Musculoskeletal: Reports no additional musculoskeletal complaints and Reports as per HPI Comments: interscapular pain Integumentary/Breasts: Skin/Breast: Reports system reviewed and no additional complaints, except as docu and Reports as per HPI Neurologic: Reports system reviewed and no additional complaints, except as documented, Reports as per HPI and Reports numbness Comments: numbness of the left upper extremity Psychiatric: Psychiatric: Reports no additional psychiatric complaints and Reports as per HPI Endocrine: Endocrine: Reports no additional endocrine complaints Hematologic/Lymphatic: Hematologic/Lymphatic: Reports no additional hematologic/lymphatic complaints and Reports as per HPI Comments: patient on chemotherapy for breast cancer Allergic/Immunologic: Allergic/Immunologic: Reports no additional allergic/immunologic complaints and Reports as per HPI [facility] Past Medical History Medical History Breast cancer Ndadl-Macntfmlg-Mpizt syndrome Surgical History Surgical History History of carpal tunnel surgery History of radiofrequency ablation procedure for cardiac arrhythmia History of tubal ligation Ulnar
[2022-07-14 23:23] LABS: Hematocrit 33.5 % (35.0-49.0); Mean Corpuscular HGB Conc 32.8 g/dL (32.0-36.0); Mean Corpuscular Hemoglobin 33.8 pg (27.0-31.0); Mean Corpuscular Volume 103.1 fL (78.0-102.0); Mean Platelet Volume 9.1 fl (9.2-11.8); Platelet Count Result 154 K/mm3 (150-420); Red Blood Count 3.25 M/mm3 (4.20-5.40); Red Cell Distribution Width 16.2 % (11.6-14.4)
[2022-07-14 23:28] VITALS: BP 106/56; PULSE 86; RESP 18; O2SAT 97
[2022-07-14 23:41] LABS: Lactic Acid Reflex 1.6 mmol/L (0.4-2.0)
[2022-07-14 23:43] LABS: Alanine Aminotransferase 22 U/L (14-59); Albumin Level 3.5 g/dL (3.4-5.0); Alkaline Phosphatase 116 U/L (46-116); Anion Gap 6 mmol/L (8-16); Aspartate Amino Transferase 15 U/L (15-37); Bilirubin,Total 0.1 mg/dL (0.00-1.00); Blood Urea Nitrogen 12 mg/dL (7-18); Calcium 9.3 mg/dL (8.5-10.1); Carbon Dioxide 31 mmol/L (21-32); Chloride 101 mmol/L (98-108); Estimated CRCL calculation 61 ml/min; Estimated Glomerular Filt Rate 56; Glucose 104 mg/dL (70-99); NT Pro B Type Natriuretic Pept 25 pg/mL (0-125); Osmolality Calculated 285 mOsm/kg (285-295); Potassium 3.5 mmol/L (3.5-5.1); Sodium 138 mmol/L (136-145); Troponin I 5.2 ng/L (0.00-60.4)
[2022-07-14 23:57] LABS: Influenza A QL RT-PCR Negative (Negative); Influenza B QL RT-PCR Negative (Negative); SARS-CoV-2 RNA PCR Negative (Negative)
[2022-07-14 23:58] LABS: RSV RNA, RT-PCR Negative (Negative)
[2022-07-15] LABS: Magnesium 1.8 mg/dL (1.8-2.4)
[2022-07-15 00:11] LABS: Band Neutrophils Percent 2 % (0-6); Basophils Percent Manual 0 % (0-1); Eosinophils Percent Manual 0 % (1-6); Lymphocytes Absolute Manual 3.24 K/mm3 (1.1-4.5); Lymphocytes Percent Manual 18 % (18-44); Monocytes Absolute Manual 0.36 K/mm3 (0.1-0.90); Monocytes Percent Manual 2 % (3-9); Myelocytes Percent 3 %; Neutrophils Absolute Manual 13.86 K/mm3 (1.7-7.2); Neutrophils Percent Manual 75 % (46-73); Platelet Estimate Adequate (Adequate); Total Cells Counted 100
[2022-07-15] MEDS: HYDROcodone/acetaminophen (*CRX) 5-325 MG TABLET 1 TAB PO (00:28)
[2022-07-15] MEDS: LACTATED RINGERS 1,000 ML 999 ML IV CONT (00:29)
--- NOTE | 2022-07-15 02:09 | PC.NURSE ---
Pt offered admission, but declines wanting to be admitted.
[2022-07-15] MEDS: HYDROmorphone HCL INJ (*CRX) 2 MG/ML VIAL 0.5 MG IV PUSH (02:14)
[2022-07-15 02:25] VITALS: BP 127/73; PULSE 75; RESP 20; TEMP 36.9; O2SAT 98
== END 2022-07-15 02:27 | disposition home or self-care (01) ==
PROVIDERS: Emergency Provider Internal Medicine Critical Care Medicine; PCP Family Medicine
DX: D35.02 Benign neoplasm of left adrenal gland (principal); R20.0 Anesthesia of skin; R91.8 Other nonspecific abnormal finding of lung field; E04.1 Nontoxic single thyroid nodule; C50.911 Malignant neoplasm of unspecified site of right female breast; J44.9 Chronic obstructive pulmonary disease, unspecified; F17.200 Nicotine dependence, unspecified, uncomplicated; Z79.82 Long term (current) use of aspirin; Z20.822 Contact with and (suspected) exposure to COVID-19
CPT/HCPCS: 36415; 70450; 71275; 74174; 80053; 83605; 83735; 83880; 84484; 85025; 85380; 87637; 93005; 96361; 96374; 99284; A9270; J1170; J7120; Q9967

== ENCOUNTER 2024-07-31 12:46 | Outpatient (RCR) | payer OTHER, SELFPAY ==
--- NOTE | 2024-07-31 13:52 | OPREHPOC ---
Outpatient Therapy Plan of Care This is a Multidisciplinary Plan of Care that may contain components documented by all disciplines (PT, OT, and ST.) PT Problem 1 PT Problem #1 Knowledge Deficit PT Goal 1 Goal / Goal Update independent and compliant with HEP Target Visit 6 PT Problem 2 PT Problem #2 Pain PT Goal 1 Goal / Goal Update decrease pain at worst to 4/10 or less in the lower back Target Visit 12 PT Problem 3 PT Problem #3 Impaired Range of Motion PT Goal 1 Goal / Goal Update active lumbar flexion to ankles/shins without pain active lumbar side bending bilat to 30 degrees Target Visit 12 PT Problem 4 PT Problem #4 Impaired Strength PT Goal 1 Goal / Goal Update improve bilateral hip strength to 4/5 or better overall improve bilateral knee strength to 4+/5 or better improve core strength to 3+/5 or better Target Visit 12 PT Problem 5 PT Problem #5 Impaired Functional Mobility PT Goal 1 Goal / Goal Update oswestry to display 20% or less functional deficits patient to return 50% reduction in L LE radicular symptoms/occurrence patient to ambulate 10 minutes in the clinic without sitting to rest patient to stand for 45 minutes in PT to improve functional activity endurance Target Visit 12
--- NOTE | 2024-07-31 13:52 | PTOPEVAL1 ---
Assessment and note entered by JT File, PT Evaluation Information Assessment Status Evaluation ICD-10 Condition Codes (PT) Pain in low back M54.50,Radiculopathy, lumbar region M54.16 Onset 07/06/24 Subjective Information patient reports she is coming to therapy for her lower back pain. she reports she has had therapy for the lower back in the past prior to finding cancer and having to stop. she then was cleared for injections for the lower back. she has now had 5 injections of the lower back, but is now coming to therapy for treatment and dry needling of the lower back. she reports she will be cancer free for 2 years beginning next month. she reports she has increased pain in the lower back when standing and walking. she reports walking is worse than standing by far. she reports sitting and laying do not bother her back. she reports she received a back brace yesterday. she reports she has had several xrays and mri's of the lower back. she reports she has NTB in the L LE. Reported Pain Level Pain Score 5: Self Report Assessment PT Clinical Summary mrs. casarez is a 64 yo woman who presents to skilled PT services for evaluation and treatment of lower back pain. she presents with signs and symptoms consistent with DDD of the lumbar spine. she displays decreased lumbar rom, pain with extension category activities, weakness of the core/hips/LE's, and poor functional activity endurance/performance. continued skilled PT is indicated to improve her objective/functional deficits and improve her functional activity performance for a better quality of life. Plan of Care Interventions Electrical Stimulation,Hot Pack/Cold Pack,Manual Therapy,Mechanical Traction,Neuro Re-education, Patient/Caregiver Education,Therapeutic Activities ,Therapeutic Exercise,Other Other Interventions dry needling PT Services Indicated Yes Treatment Frequency and 3x weekly for 12 visits Duration These treatments will address the objective and functional deficits as defined above. The patient will be advanced safely and appropriately in order for the patient to progress towards his/her prior level of function. Additional exercises will be introduced and as well as a comprehensive home exercise program upon discharge, if needed, ?to ensure carryover of functional gains achieved in the clinic. This treatment plan has been reviewed and agreement upon by the patient.
== END 2024-10-29 23:59 | disposition home or self-care (01) ==
LOC: CHSPT 12:46
DX: M54.16 Radiculopathy, lumbar region (principal); M54.50 Low back pain, unspecified
CPT/HCPCS: 97014; 97110; 97140; 97161; G0283

== ENCOUNTER 2025-02-02 11:18 | Outpatient (CLI) | payer MEDICARE, SELFPAY ==
--- NOTE | ~2025-02-02 | XR_ITS ---
EXAMINATION: XR chest 2V, 02/02/2025 11:55 PROMOTIONS ASSOCIATE HISTORY: Pre-op COMPARISON: No comparisons available. Technique: 2 views obtained. Findings: The lungs are clear, no effusion. No pneumothorax. Heart is normal size. Mediastinal and hilar contours are within normal limits. Bony thorax no acute abnormality. Impression: No acute cardiopulmonary abnormality. Reviewed, dictated and finalized at location P. OTIONS ASSOCIATE Impression: No acute cardiopulmonary abnormality.
[2025-02-02 14:12] LABS: MRSA (PCR) NOT DETECTED (NOT DETECTE)
== END 2025-02-02 11:19 | disposition home or self-care (01) ==
LOC: CHSLAB 11:29
PROVIDERS: PCP Physician Assistant; Visit Provider Physician Assistant
DX: Z01.818 Encounter for other preprocedural examination (principal)
CPT/HCPCS: 71046; 87641